=== PATIENT | male | born 1950 | race Caucasian/White ===

== ENCOUNTER 2017-12-06 15:30 | Emergency (ER) | payer MEDICARE, OTHER, MEDICAID ==
[~2017-12-06] VITALS: Ht 172.7 cm; Wt 59.0 kg
[~2017-12-06 15:30] MED LIST: AMITRIPTYLIN50 MG PO; B-12 COMPL1000 MCG/M; COREG12.5 MG PO; CYMBALTA30 MG PO; DULERA1 AE1 IN; EQ ASPIRIN325 MG PO; FLONASE AL50 MCG/ACT; FOLIC ACID1 M1; FOLIC PO; HYDROCODONE/ACE1 TAB PO; LEXAPRO20 MG PO; LIDOCAINE51; MEGACE40 MG PO; MELOXICAM15 MG PO; METHOCARBAM750 MG OR; MORPHINE SUL15 M1 OR; MORPHINE SUL15 M2 OR; PROAIR HFA IN; TRAMADOL HCL50 MG PO; TRAZODONE100 MG PO; VITAMIN B PO; XANAX XR0.5 MG PO
[2017-12-06 17:30] VITALS: BP 149/74
[2017-12-06] MEDS ORDERED: ULTRAM50 M1 PO (17:33)
== END 2017-12-06 17:30 | disposition home or self-care (01) ==
LOC: ED 15:30
DX: S20.211A Contusion of right front wall of thorax, initial encounter (principal); W01.190A Fall on same level from slipping, tripping and stumbling with subsequent striking against furniture, initial encounter; Y93.9 Activity, unspecified; Y92.009 Unspecified place in unspecified non-institutional (private) residence as the place of occurrence of the external cause

== ENCOUNTER 2018-01-11 12:16 | Emergency (ER) | payer MEDICARE, OTHER, MEDICAID ==
[~2018-01-11] VITALS: Ht 172.7 cm; Wt 64.0 kg
[~2018-01-11 12:16] MED LIST changes: +ULTRAM50 M1 PO
[2018-01-11 13:20] LABS: HEMATOCRIT 36.4 % (39.0-50.0); HEMOGLOBIN 11.8 g/dl (14.0-18.0); IMMATURE GRANULOCYTES 0.4 % (0.0-1.0); MEAN CORPUSCULAR HGB 29.5 pG CALC (26.0-32.0); MEAN CORPUSCULAR HGB CONC 32.4 g/L CALC (32.0-36.0); RED CELL DISTRI WIDTH 14.3 % (11.5-15.5)
[2018-01-11 13:28] LABS: INTERNATIONAL NORMALIZED RATIO 1.1 RATIO (0.7-1.3); PROTHROMBIN TIME 12.7 SECONDS (9.0-12.5)
[2018-01-11 13:32] LABS: ALBUMIN 3.5 g/dL (3.2-5.0); ALKALINE PHOSPHATASE 61 u/l (38-126); ANION GAP 13 (6-22 (CALC)); BILIRUBIN, TOTAL 0.5 mg/dL (0.0-1.4); BUN 22 mg/dL (8-23); BUN/CREATININE RATIO 23 (12-20 (CALC)); CARBON DIOXIDE 25 mmol/l (22-30); CHLORIDE 105 mmol/l (95-108); CREATININE 0.9 mg/dL (0.7-1.3); GFR > 60 ML/MIN (>=60 (CALC)); GFR FOR AFR.AMER. > 60 ML/MIN (>=60 (CALC)); POTASSIUM 4.8 mmol/l (3.5-5.1); SGOT/AST 25 u/l (19-48); SGPT/ALT 19 u/l (11-66); SODIUM 138 mmol/l (137-146); TOTAL PROTEIN 6.2 g/dL (6.3-8.2)
[2018-01-11 13:36] LABS: URINE BILIRUBIN - DIPSTICK NEGATIVE (NEGATIVE); URINE BLOOD DIPSTICK NEGATIVE (NEGATIVE); URINE COLOR YELLOW; URINE GLUCOSE - DIPSTICK NEGATIVE (NEGATIVE); URINE KETONE NEGATIVE (NEGATIVE); URINE LEUK ESTERASE NEGATIVE (NEGATIVE); URINE NITRITE - DIPSTICK NEGATIVE (Negative); URINE PH 6.5 (4.5-8.0); URINE PROTEIN - DIPSTICK NEGATIVE (NEG-TRACE); URINE UROBILINOGEN - DIPSTICK 0.2 E.U./dL (0.2)
[2018-01-11 13:39] LABS: URINE CLARITY CLEAR
[2018-01-11 13:39] LABS: ETHYL ALCOHOL 0 mg/dl (0-30); MYOGLOBIN 44 ng/mL (0 - 121)
[2018-01-11 13:41] LABS: BARBITURATES NEGATIVE (NEGATIVE); COCAINE NEGATIVE (NEGATIVE); METHADONE NEGATIVE (NEGATIVE); OXCYCODONE NEGATIVE (NEGATIVE); TETRAHYDROCANNABIONOL NEGATIVE (NEGATIVE); TRICYLIC ANTIDEPRESSANTS POSITIVE (NEGATIVE)
[2018-01-11] MEDS ORDERED: ADULT ASPIRIN R81 MG PO (16:27)
[2018-01-11] MEDS ORDERED: DEPO-TESTOS100 MG/ML IM (16:29)
[2018-01-11 16:40] VITALS: BP 126/59
== END 2018-01-11 16:50 | disposition home or self-care (01) ==
LOC: ED 12:16
PROVIDERS: Family Medicine
DX: R41.82 Altered mental status, unspecified (principal); F41.9 Anxiety disorder, unspecified; F32.9 Major depressive disorder, single episode, unspecified; I25.2 Old myocardial infarction; M19.90 Unspecified osteoarthritis, unspecified site; F17.210 Nicotine dependence, cigarettes, uncomplicated; R94.31 Abnormal electrocardiogram [ECG] [EKG]

== ENCOUNTER 2018-03-14 11:13 | Emergency (ER) | payer MEDICARE, OTHER, MEDICAID ==
[~2018-03-14] VITALS: Ht 172.7 cm; Wt 55.0 kg
[~2018-03-14 11:13] MED LIST changes: +ADULT ASPIRIN R81 MG PO; +DEPO-TESTOS100 MG/ML IM
[2018-03-14 11:40] LABS: HEMATOCRIT 36.1 % (39.0-50.0); HEMOGLOBIN 11.6 g/dl (14.0-18.0); IMMATURE GRANULOCYTES 0.3 % (0.0-1.0); MEAN CELL VOLUME 88.9 fL CALC (80.0-100.0); MEAN CORPUSCULAR HGB 28.6 pG CALC (26.0-32.0); MEAN CORPUSCULAR HGB CONC 32.1 g/L CALC (32.0-36.0); NEUT# 8.91 thou/uL (1.82-7.42); RED BLOOD COUNT 4.06 mill/uL (4.70-6.10); RED CELL DISTRI WIDTH 14.6 % (11.5-15.5)
[2018-03-14 11:53] VITALS: BP 105/57
[2018-03-14 12:03] LABS: ALBUMIN 3.8 g/dL (3.2-5.0); ALKALINE PHOSPHATASE 60 u/l (38-126); ANION GAP 17 (6-22 (CALC)); BILIRUBIN, TOTAL 0.7 mg/dL (0.0-1.4); BUN 29 mg/dL (8-23); BUN/CREATININE RATIO 30 (12-20 (CALC)); CARBON DIOXIDE 23 mmol/l (22-30); CHLORIDE 104 mmol/l (95-108); GFR > 60 ML/MIN (>=60 (CALC)); GFR FOR AFR.AMER. > 60 ML/MIN (>=60 (CALC)); POTASSIUM 3.8 mmol/l (3.5-5.1); SGOT/AST 32 u/l (19-48); SGPT/ALT 29 u/l (11-66); SODIUM 140 mmol/l (137-146); TOTAL PROTEIN 6.7 g/dL (6.3-8.2)
[2018-03-14 12:14] LABS: MYOGLOBIN 62 ng/mL (0 - 121)
== END 2018-03-14 11:54 | disposition short-term general hospital (02) ==
LOC: ED 11:13
PROVIDERS: Family Medicine
DX: I21.3 ST elevation (STEMI) myocardial infarction of unspecified site (principal); I25.2 Old myocardial infarction; F32.9 Major depressive disorder, single episode, unspecified; M19.90 Unspecified osteoarthritis, unspecified site; F41.9 Anxiety disorder, unspecified; F17.210 Nicotine dependence, cigarettes, uncomplicated; Z95.5 Presence of coronary angioplasty implant and graft

== ENCOUNTER 2018-05-19 01:21 | Emergency (ER) | payer MEDICARE, OTHER, MEDICAID ==
[~2018-05-19] VITALS: Ht 172.7 cm; Wt 56.2 kg
[2018-05-19] MEDS ORDERED: CARVEDILOL12.5 MG PO (01:35)
[2018-05-19] MEDS ORDERED: NORCO1 TA2 PO (01:36)
[2018-05-19] MEDS ORDERED: ALPRAZOLAM0.5 M2 PO (01:36)
[2018-05-19] MEDS ORDERED: ESCITALOPRAM OX20 MG PO (01:37)
[2018-05-19 02:27] LABS: URINE BILIRUBIN - DIPSTICK NEGATIVE (NEGATIVE); URINE BLOOD DIPSTICK SMALL (NEGATIVE); URINE COLOR YELLOW; URINE GLUCOSE - DIPSTICK NEGATIVE (NEGATIVE); URINE KETONE NEGATIVE (NEGATIVE); URINE LEUK ESTERASE NEGATIVE (NEGATIVE); URINE NITRITE - DIPSTICK NEGATIVE (Negative); URINE PH 5.5 (4.5-8.0); URINE PROTEIN - DIPSTICK NEGATIVE (NEG-TRACE); URINE SPECIFIC GRAVITY 1.015; URINE UROBILINOGEN - DIPSTICK 0.2 E.U./dL (0.2)
[2018-05-19 02:28] LABS: URINE CLARITY SL CLOUDY
[2018-05-19 02:38] LABS: URINE MUCUS MODERATE hpf (NONE-FEW); URINE SQUAMOUS EPITHELIAL CELL FEW EPI/hpf (0-FEW)
[2018-05-19] MEDS ORDERED: TAMSULOSIN0.4 MG PO (02:41)
[2018-05-19] MEDS ORDERED: BACTRIM DS1 TAB PO (02:41)
[2018-05-19 03:23] VITALS: BP 172/78
== END 2018-05-19 03:23 | disposition home or self-care (01) ==
LOC: ED 01:21
PROVIDERS: Family Medicine
PROC: 0T9B70Z Drainage of Bladder with Drainage Device, Via Natural or Artificial Opening (ICD-10-PCS; principal; 2018-05-19)
DX: N40.1 Benign prostatic hyperplasia with lower urinary tract symptoms (principal); R33.8 Other retention of urine

== ENCOUNTER 2018-05-26 16:50 | Emergency (ER) | payer MEDICARE, OTHER, MEDICAID ==
[~2018-05-26] VITALS: Ht 172.7 cm; Wt 57.0 kg
[2018-05-26 16:50] VITALS: BP 133/74
[~2018-05-26 16:50] MED LIST changes: +ALPRAZOLAM0.5 M2 PO; +BACTRIM DS1 TAB PO; +CARVEDILOL12.5 MG PO; +ESCITALOPRAM OX20 MG PO; +NORCO1 TA2 PO; +TAMSULOSIN0.4 MG PO
== END 2018-05-26 17:02 | disposition left against medical advice (07) ==
LOC: ED 16:50 → LWOBS 17:02
DX: Z91.19 Patient's noncompliance with other medical treatment and regimen (principal)

== ENCOUNTER 2018-05-26 19:43 | Emergency (ER) | payer MEDICARE, OTHER, MEDICAID ==
[~2018-05-26] VITALS: Ht 152.4 cm; Wt 55.4 kg
[2018-05-26 20:15] VITALS: BP 139/78
== END 2018-05-26 20:15 | disposition home or self-care (01) ==
LOC: ED 19:43
DX: Z46.6 Encounter for fitting and adjustment of urinary device (principal); I10 Essential (primary) hypertension; F32.9 Major depressive disorder, single episode, unspecified; F41.9 Anxiety disorder, unspecified; M19.90 Unspecified osteoarthritis, unspecified site; F17.210 Nicotine dependence, cigarettes, uncomplicated; I25.2 Old myocardial infarction

== ENCOUNTER 2018-05-28 17:08 | Emergency (ER) | payer MEDICARE, OTHER, MEDICAID ==
[~2018-05-28] VITALS: Ht 172.7 cm; Wt 54.5 kg
[2018-05-28 17:31] VITALS: BP 131/78
[2018-05-28] MEDS ORDERED: VISTARIL 50MG C50 M1 PO (17:32)
== END 2018-05-28 17:48 | disposition home or self-care (01) ==
LOC: ED 17:08
DX: F41.9 Anxiety disorder, unspecified (principal); R19.7 Diarrhea, unspecified; R11.0 Nausea; J44.9 Chronic obstructive pulmonary disease, unspecified; F17.210 Nicotine dependence, cigarettes, uncomplicated

== ENCOUNTER 2018-06-09 03:22 | Emergency (ER) | payer MEDICARE, OTHER, MEDICAID ==
[~2018-06-09] VITALS: Ht 172.7 cm; Wt 57.0 kg
[~2018-06-09 03:22] MED LIST changes: +VISTARIL 50MG C50 M1 PO
[2018-06-09] MEDS ORDERED: CIPROFLOXACN500 MG PO (03:39)
[2018-06-09 03:58] VITALS: BP 161/72
== END 2018-06-09 03:57 | disposition home or self-care (01) ==
LOC: ED 03:22
PROC: 0T9B70Z Drainage of Bladder with Drainage Device, Via Natural or Artificial Opening (ICD-10-PCS; principal; 2018-06-09)
DX: R33.9 Retention of urine, unspecified (principal); I10 Essential (primary) hypertension; F32.9 Major depressive disorder, single episode, unspecified; F41.9 Anxiety disorder, unspecified; M19.90 Unspecified osteoarthritis, unspecified site; I25.2 Old myocardial infarction; Z95.5 Presence of coronary angioplasty implant and graft; F17.210 Nicotine dependence, cigarettes, uncomplicated

== ENCOUNTER 2018-06-15 07:52 | Emergency (ER) | payer MEDICARE, OTHER, MEDICAID ==
[~2018-06-15] VITALS: Ht 172.7 cm; Wt 60.0 kg
[~2018-06-15 07:52] MED LIST changes: +CIPROFLOXACN500 MG PO
[2018-06-15 08:21] LABS: URINE BILIRUBIN - DIPSTICK NEGATIVE (NEGATIVE); URINE BLOOD DIPSTICK TRACE-INTACT (NEGATIVE); URINE CLARITY CLEAR; URINE COLOR YELLOW; URINE GLUCOSE - DIPSTICK NEGATIVE (NEGATIVE); URINE KETONE NEGATIVE (NEGATIVE); URINE LEUK ESTERASE NEGATIVE (NEGATIVE); URINE NITRITE - DIPSTICK NEGATIVE (Negative); URINE PROTEIN - DIPSTICK NEGATIVE (NEG-TRACE); URINE UROBILINOGEN - DIPSTICK 0.2 E.U./dL (0.2)
[2018-06-15 08:29] VITALS: BP 118/62
== END 2018-06-15 08:34 | disposition home or self-care (01) ==
LOC: ED 07:52
PROVIDERS: Family Medicine
PROC: 0T9B70Z Drainage of Bladder with Drainage Device, Via Natural or Artificial Opening (ICD-10-PCS; principal; 2018-06-15)
DX: N40.1 Benign prostatic hyperplasia with lower urinary tract symptoms (principal); R33.8 Other retention of urine

== ENCOUNTER 2018-06-27 22:15 | Emergency (ER) | payer MEDICARE, OTHER, MEDICAID ==
[~2018-06-27] VITALS: Ht 172.7 cm; Wt 58.4 kg
[2018-06-27 22:52] VITALS: BP 126/67
== END 2018-06-27 22:59 | disposition home or self-care (01) ==
LOC: ED 22:15
DX: Z46.6 Encounter for fitting and adjustment of urinary device (principal); I10 Essential (primary) hypertension; I25.2 Old myocardial infarction; F32.9 Major depressive disorder, single episode, unspecified; M19.90 Unspecified osteoarthritis, unspecified site; F41.9 Anxiety disorder, unspecified; F17.210 Nicotine dependence, cigarettes, uncomplicated

== ENCOUNTER 2018-09-13 10:12 | Emergency (ER) | payer MEDICARE, MEDICAID ==
[~2018-09-13] VITALS: Ht 172.7 cm; Wt 59.0 kg
[2018-09-13 11:00] LABS: ANION GAP 16 (6-22 (CALC)); BUN 10 mg/dL (8-23); BUN/CREATININE RATIO 13 (12-20 (CALC)); CARBON DIOXIDE 27 mmol/l (22-30); CHLORIDE 102 mmol/l (95-108); CREATININE 0.8 mg/dL (0.7-1.3); GFR > 60 ML/MIN (>=60 (CALC)); GFR FOR AFR.AMER. > 60 ML/MIN (>=60 (CALC)); SODIUM 140 mmol/l (137-146)
[2018-09-13 11:02] LABS: POTASSIUM 5.2 mmol/l (3.5-5.1)
[2018-09-13 11:04] LABS: HEMATOCRIT 46.7 % (39.0-50.0); HEMOGLOBIN 14.7 g/dl (14.0-18.0); IMMATURE GRANULOCYTES 0.2 % (0.0-5.0); MEAN CELL VOLUME 84.6 fL CALC (80.0-100.0); MEAN CORPUSCULAR HGB 26.6 pG CALC (26.0-32.0); MEAN CORPUSCULAR HGB CONC 31.5 g/L CALC (32.0-36.0); NEUT# 6.18 thou/uL (1.82-7.42); RED BLOOD COUNT 5.52 mill/uL (4.70-6.10); RED CELL DISTRI WIDTH 15.9 % (11.5-15.5)
[2018-09-13 11:22] VITALS: BP 176/81
== END 2018-09-13 11:23 | disposition left against medical advice (07) ==
LOC: ED 10:12
PROVIDERS: Family Medicine
DX: R55 Syncope and collapse (principal); R06.02 Shortness of breath; I10 Essential (primary) hypertension; F32.9 Major depressive disorder, single episode, unspecified; F41.9 Anxiety disorder, unspecified; M19.90 Unspecified osteoarthritis, unspecified site; F17.210 Nicotine dependence, cigarettes, uncomplicated; I25.2 Old myocardial infarction; Z91.19 Patient's noncompliance with other medical treatment and regimen; R94.31 Abnormal electrocardiogram [ECG] [EKG]

== ENCOUNTER 2019-03-17 16:28 | Emergency (ER) | payer MEDICARE, MEDICAID ==
[~2019-03-17] VITALS: Ht 172.7 cm; Wt 62.0 kg
[2019-03-17 17:02] LABS: HEMATOCRIT 45.9 % (39.0-50.0); HEMOGLOBIN 14.8 g/dl (14.0-18.0); IMMATURE GRANULOCYTES 0.2 % (0.0-5.0); MEAN CELL VOLUME 83.6 fL CALC (80.0-100.0); MEAN CORPUSCULAR HGB CONC 32.2 g/L CALC (32.0-36.0); NEUT# 6.27 thou/uL (1.82-7.42); RED BLOOD COUNT 5.49 mill/uL (4.70-6.10); RED CELL DISTRI WIDTH 15.3 % (11.5-15.5)
[2019-03-17 17:21] LABS: ALBUMIN 4.7 g/dL (3.2-5.0); ALKALINE PHOSPHATASE 69 u/l (38-126); BUN 13 mg/dL (8-23); BUN/CREATININE RATIO 16 (12-20 (CALC)); CARBON DIOXIDE 27 mmol/l (22-30); CHLORIDE 102 mmol/l (95-108); CPK 63 u/l (52-200); CREATININE 0.8 mg/dL (0.7-1.3); GFR > 60 ML/MIN (>=60 (CALC)); GFR FOR AFR.AMER. > 60 ML/MIN (>=60 (CALC)); SGOT/AST 22 u/l (19-48); SODIUM 141 mmol/l (137-146); TOTAL PROTEIN 7.7 g/dL (6.3-8.2)
[2019-03-17 17:22] LABS: ANION GAP 16 (6-22 (CALC)); BILIRUBIN, TOTAL 0.6 mg/dL (0.0-1.4); POTASSIUM 3.8 mmol/l (3.5-5.1)
[2019-03-17 17:33] LABS: MYOGLOBIN 77 ng/mL (0 - 121)
[2019-03-17 19:01] VITALS: BP 198/90
== END 2019-03-17 18:43 | disposition left against medical advice (07) ==
LOC: ED 16:28
PROVIDERS: Emergency Medicine
DX: R19.7 Diarrhea, unspecified (principal); I10 Essential (primary) hypertension; R53.1 Weakness; R42 Dizziness and giddiness; R11.2 Nausea with vomiting, unspecified; Z91.19 Patient's noncompliance with other medical treatment and regimen

== ENCOUNTER 2019-08-07 08:27 | Day surgery (SDC) | payer MEDICARE, MEDICAID ==
[~2019-08-07] VITALS: Ht 172.7 cm; Wt 62.6 kg
[~2019-08-07 08:27] MED LIST changes: +ALPRAZOLAM0.5 MG PO; +ASPIRIN81 MG PO; +BUPROPION HCL150 M1 PO; +COMBIVENT RESPIMAT IN; +CYANOCOBAL1000 MCG/M SC; +FAMOTIDINE20 M1 PO; +FAMOTIDINE20 M3 PO; +HYDROCODONE BIT1 TA7 PO; +OMEPRAZOLE PO; +ONDANSETRON4 MG PO; +SEROQUEL100 MG PO; +SERTRALINE PO; +TESTOSTERONE; +TRAZODONE50 MG PO
[2019-08-07 10:58] VITALS: BP 162/81
== END 2019-08-07 11:10 | disposition home or self-care (01) ==
LOC: ENDO 08:27 → ORM 10:05 → ENDO 11:10 → ORM 12:00
PROVIDERS: ATTEND Surgery
PROC: 0DB98ZX Excision of Duodenum, Via Natural or Artificial Opening Endoscopic, Diagnostic (ICD-10-PCS; principal; 2019-08-07)
PROC: 0DB78ZX Excision of Stomach, Pylorus, Via Natural or Artificial Opening Endoscopic, Diagnostic (ICD-10-PCS; 2019-08-07)
DX: K21.9 Gastro-esophageal reflux disease without esophagitis (principal); K29.80 Duodenitis without bleeding; K29.70 Gastritis, unspecified, without bleeding; K44.9 Diaphragmatic hernia without obstruction or gangrene; J44.9 Chronic obstructive pulmonary disease, unspecified; I10 Essential (primary) hypertension; I25.2 Old myocardial infarction

== ENCOUNTER 2020-09-13 16:52 | Emergency (ER) | payer MEDICARE, MEDICAID ==
[~2020-09-13] VITALS: Ht 172.7 cm; Wt 65.0 kg
[2020-09-13 17:22] LABS: IMMATURE GRANULOCYTES 0.3 % (0.0-5.0); MEAN CELL VOLUME 88.8 fL CALC (80.0-100.0); MEAN CORPUSCULAR HGB 28.9 pG CALC (26.0-32.0); MEAN CORPUSCULAR HGB CONC 32.6 g/dL CAL (32.0-36.0); NEUT# 6.47 thou/uL (1.82-7.42); RED BLOOD COUNT 4.01 mill/uL (4.70-6.10); RED CELL DISTRI WIDTH 14.2 % (11.5-15.5)
[2020-09-13 17:24] LABS: URINE BILIRUBIN - DIPSTICK NEGATIVE (NEGATIVE); URINE BLOOD DIPSTICK TRACE-INTACT (NEGATIVE); URINE COLOR YELLOW; URINE GLUCOSE - DIPSTICK NEGATIVE (NEGATIVE); URINE KETONE NEGATIVE (NEGATIVE); URINE LEUK ESTERASE NEGATIVE (NEGATIVE); URINE NITRITE - DIPSTICK NEGATIVE (Negative); URINE PH 5.5 (4.5-8.0); URINE PROTEIN - DIPSTICK NEGATIVE (NEG-TRACE); URINE SPECIFIC GRAVITY <=1.005; URINE UROBILINOGEN - DIPSTICK 0.2 E.U./dL (0.2)
[2020-09-13 17:26] LABS: HEMATOCRIT 35.6 % (39.0-50.0); HEMOGLOBIN 11.6 g/dl (14.0-18.0)
[2020-09-13 17:38] LABS: ALBUMIN 4.1 g/dL (3.2-5.0); ALKALINE PHOSPHATASE 86 u/l (38-126); BUN 9 mg/dL (8-23); BUN/CREATININE RATIO 11 (12-20 (CALC)); CHLORIDE 107 mmol/l (95-108); CREATININE 0.9 mg/dL (0.7-1.3); GFR > 60 ML/MIN (>=60 (CALC)); GFR FOR AFR.AMER. > 60 ML/MIN (>=60 (CALC)); LIPASE 34 u/l (23-300); POTASSIUM 4.4 mmol/l (3.5-5.1); SGOT/AST 34 u/l (19-48); SODIUM 138 mmol/l (137-146); TOTAL PROTEIN 7.1 g/dL (6.3-8.2)
[2020-09-13 17:39] LABS: ANION GAP 12 (6-22 (CALC)); BILIRUBIN, TOTAL 0.7 mg/dL (0.0-1.4); CARBON DIOXIDE 23 mmol/l (22-30)
[2020-09-13 18:04] VITALS: BP 157/72
== END 2020-09-13 18:00 | disposition home or self-care (01) ==
LOC: ED 16:52
PROVIDERS: Family Medicine
DX: R55 Syncope and collapse (principal); S00.81XA Abrasion of other part of head, initial encounter; I10 Essential (primary) hypertension; F32.9 Major depressive disorder, single episode, unspecified; F41.9 Anxiety disorder, unspecified; J44.9 Chronic obstructive pulmonary disease, unspecified; F17.200 Nicotine dependence, unspecified, uncomplicated; I25.2 Old myocardial infarction; W19.XXXA Unspecified fall, initial encounter; Y92.89 Other specified places as the place of occurrence of the external cause

== ENCOUNTER 2020-10-14 09:33 | Observation (INO) | payer MEDICARE, MEDICAID ==
[~2020-10-14] VITALS: Ht 172.7 cm; Wt 75.0 kg
--- NOTE | 2020-10-14 09:33 | NUR ---
PT TO ROOM 9 VIA EMS. BEDSIDE TRAIGE COMPLETED. PT STATES THAT HE WANTS TO . DR MOORE NOTIFIED. PT STATES THAT 1 MONTH AGO.
--- NOTE | 2020-10-14 09:40 | NUR ---
PATIENT UNABLE TO RECONCILE MEDICATIONS AT THIS TIME.
--- NOTE | 2020-10-14 09:45 | NUR ---
PT REPORTS SOB X 1 MONTH AND FALLING SEVERAL TIMES. STATES HIS 1 MONTH AGO AND NO LONGER WANTS TO LIVE. PT TEARFUL WHEN SPEAKING. CLOTHING REMOVED AND PLACED IN BELONGING BAG. COMMERCIAL SALES DIRECTOR IN PLACE. CALL LIGHT GIVEN. SITTER OUTSIDE OF ROOM.
[2020-10-14 09:51] LABS: HEMATOCRIT 40.5 % (39.0-50.0); HEMOGLOBIN 13.1 g/dl (14.0-18.0); IMMATURE GRANULOCYTES 0.4 % (0.0-5.0); MEAN CELL VOLUME 86.4 fL CALC (80.0-100.0); MEAN CORPUSCULAR HGB 27.9 pG CALC (26.0-32.0); MEAN CORPUSCULAR HGB CONC 32.3 g/dL CAL (32.0-36.0); NEUT# 8.8 thou/uL (1.82-7.42); RED BLOOD COUNT 4.69 mill/uL (4.70-6.10); RED CELL DISTRI WIDTH 13.9 % (11.5-15.5)
--- NOTE | 2020-10-14 10:05 | NUR ---
PT TO RADIOLGY VIA STRETCHER ACCOMPANIED BY SITTER.
--- NOTE | 2020-10-14 10:15 | NUR ---
PT RETURNS FROM CAT SCAN. PLACED BACK ON MONITOR, SITTER BEDSIDE.
--- NOTE | 2020-10-14 10:45 | NUR ---
PT REQUESTING PAIN MEDICATION, REPORTS "PAIN ALL OVER." DR MOORE NOTIFIED ORDER RECEIVED FOR MEDICATION
[2020-10-14 10:49] LABS: ALBUMIN 4.5 g/dL (3.2-5.0); ALKALINE PHOSPHATASE 123 u/l (38-126); ANION GAP 17 (6-22 (CALC)); BILIRUBIN, TOTAL 0.7 mg/dL (0.0-1.4); BUN 16 mg/dL (8-23); BUN/CREATININE RATIO 16 (12-20 (CALC)); CARBON DIOXIDE 23 mmol/l (22-30); CHLORIDE 104 mmol/l (95-108); GFR > 60 ML/MIN (>=60 (CALC)); GFR FOR AFR.AMER. > 60 ML/MIN (>=60 (CALC)); POTASSIUM 4.1 mmol/l (3.5-5.1); SGOT/AST 33 u/l (19-48); SODIUM 139 mmol/l (137-146); TOTAL PROTEIN 7.3 g/dL (6.3-8.2)
--- NOTE | 2020-10-14 11:05 | NUR ---
PT MEDICATED FOR PAIN PER EDP ORDER. TOLERATED ADMINISTRATION WELL. PT REQUESTING BLANKETS. REPOSITIONED IN BED FOR COMFORT. SITTER BEDSIDE FOR CLOSE OBSERVATION.
--- NOTE | 2020-10-14 11:40 | NUR ---
IN ROOM WITH DR MOORE SPEAKING WITH PT REGARDING COTO ACT STATUS AND PLAN OF CARE. PT STATES "GIVE ME THE PAPER TO SIGN OUT, I WANT TO LEAVE." DR MOORE ADVISED PT AGAIN OF COTO ACT STATUS AND ORDER IN WHICH PT VOICED HIS THOUGHTS OF "WANTING TO ." AND "NO LONGER LIVE." PT CONTINUES TO ARGUE WITH STAFF MEMBERS IN REGARDS TO LEAVING AND NOT WANTING TO BE IN HOSPITAL. THIS NURSE AND DR MOORE REITERATED THE IMPORTANCE TO BE EVALUATED FURTHER. PT RELOCATED TO ROOM # 10 FOR CLOSER STAFF OBSERVATION. PT STATES "GIVE ME SOME MORPHINE, A LOT OF IT, IM HURTING ALL OVER." DR MOORE PLACED ORDER FOR MEDICATION.
--- NOTE | 2020-10-14 11:50 | NUR ---
PT MEDICATED WITH MORPHINE PER ORDER. DISCUSSED WITH PT IMPORTANCE TO REMAIN IN BED. AIRCRAFT WORKER IN PLACE. CALL LIGHT GIVEN. PT REMAINS IN CLOSE OBSERVATION OF STAFF AND SITTER BEDSIDE.
[2020-10-14] MEDS ORDERED: ZOFRAN4 MG/TAB PO (11:56)
[2020-10-14] MEDS ORDERED: IPRATROPIU0.5 MG/3 M IN (12:27)
[2020-10-14] MEDS ORDERED: CYANOCOBAL1000 MCG/M IM (12:28)
[2020-10-14] MEDS ORDERED: OMEPRAZOLE DR40 MG PO (12:29)
[2020-10-14] MEDS ORDERED: BUPROPION HCL150 M1 PO (12:30)
[2020-10-14] MEDS ORDERED: DULERA1 AE1 IN (12:31)
[2020-10-14] MEDS ORDERED: SEROQUEL100 MG PO (12:32)
[2020-10-14] MEDS ORDERED: ZOLOFT50 MG PO (12:32)
[2020-10-14] MEDS ORDERED: COMBIVENT RESPIMAT IN (12:33)
[2020-10-14] MEDS ORDERED: CARVEDILOL6.25 MG PO (12:34)
[2020-10-14] MEDS ORDERED: TIZANIDINE HYDRO2 M1 PO (12:35)
[2020-10-14] MEDS ORDERED: LORTAB 1010 MG PO (12:35)
[2020-10-14] MEDS ORDERED: MIRTAZAPINE15 MG PO (12:36)
[2020-10-14] MEDS ORDERED: ALPRAZOLAM1 MG PO (12:36)
--- NOTE | 2020-10-14 12:50 | NUR ---
PT SLEEPING AT THIS TIME. RESP EVEN AND UNLABORED. LEGAL DEPARTMENT MANAGER IN PLACE. SITTER PRESENT FOR 1:[address] MOORE SPEAKING WITH DR CRAVEN REGARDING ADMISSION.
--- NOTE | 2020-10-14 13:00 | NUR ---
PT REPORTS "FEELING ANXIOUS, I NEED MY XNAX." DR MOORE NOTIFIED AND ORDER RECEIVED FOR ATIVAN PO.
--- NOTE | 2020-10-14 13:15 | NUR ---
IN ROOM TO MEDICATE PT WITH MEDICATION PER MD ORDER. PT STATES " THAT MORPHINE DIDN'T DO ANYTHING FOR ME, CAN DR MOORE MAKE SURE I HAVE SOME WHEN I GO UPSTAIRS." ADVISED PT THAT WOULD BE UP TO THE ADMITTING PROVIDER AND TO SPEAK WITH THEM REGARDING HIS REQUEST. PT MENTIONS THAT HE HAS A WALKER, CANE AND WHEELCHAIR AT HOME AND DOESN'T UTILITZE THEM. INSTRUCTED PT ON THE IMPORATNCE TO USE DEVICES FOR ASSISTED AMBULATTION AND TO PREVENT FALLS. PT VERABLIZED UNDERSTANDING.
--- NOTE | 2020-10-14 13:30 | NUR ---
Admission Note Report Given to: JENNIFER COLLINS Transported by: Wheelchair X Stretcher Transported with: X Nurse Transporter X Patent IV O2 X Dictating Transcribing Machine Servicer Location: X ICU MS2 PT TRANSPORTED TO ICU RM # 3 WITH REPORT GIVEN TO KARINA.
--- NOTE | 2020-10-14 13:30 | NUR ---
REPORT GIVEN TO KARINA RODRIGUEZ
--- NOTE | 2020-10-14 14:00 | NUR ---
PT ARRIVES FROM ER VIA STRETCHER ACCOMPANIED BY JUNIOR. PT IS AMBULATORY TO BED, BUT UNSTEADY. LUNGS CLEAR, RA. NO DISTRESS NOTED. PT COMPLAINS OF PAIN ALL OVER FROM FALLS AT HOME. BLOOD PRESSURE ELEVATED, MEDS REQUESTED FOR SAME. SITTER AT BEDSIDE.
--- NOTE | 2020-10-14 15:24 | NUR ---
PT REVIEWED PATIENT'S CHART AND PATIENT WILL BENEFIT FROM PHYSICAL THERAPY. ORDER FOR PT EVAL AND TREAT.
--- NOTE | 2020-10-14 16:15 | NUR ---
PT PROVIDED KATALINA DAVION FOR NAUSEA. XANAX PROVIDED REQUESTED. MEDS REVIEWED WITH PT SO THAT HE CAN KNOW WHEN NEXT DOSES ARE AVAILABLE.
--- NOTE | 2020-10-14 17:02 | NUR ---
CAROLINA'S FRIEND EMANUEL WAS CONTACTED TO HELP FEED THE CAT, AGREED. EMANUEL IS AT [phone].
[2020-10-14 19:00] VITALS: BP 172/76
--- NOTE | 2020-10-14 19:01 | NUR ---
REPORT FROM KARINA RODRIGUEZ. ASSUME PT CARE AT THIS TIME.
[2020-10-14 20:00] VITALS: BP 157/77
--- NOTE | 2020-10-14 20:16 | NUR ---
PT NOTED SITTING UP IN BED. NO APPARENT DISTRESS NOTED. PT ALERT AND ORIENTED X3. IV SITE APPEARS HEALTHY. PT C/O GENERALIZED PAIN, REFUSED APAP AND REPOSITIONING. DISCUSSED WITH PT NEXT AVAILABLE DUE TIME FOR LORTAB, PT VERBALIZED UNDERSTANDING. ALSO DISCUSSED POC AND SAFETY PRECAUTIONS. MONITORS IN PLACE. SKIN INTACT. NO CURRENT WANTS OR NEEDS. CALL LIGHT WITHIN REACH. SITTER AT BEDSIDE. WILL CONTINUE TO MONITOR.
--- NOTE | 2020-10-14 21:18 | NUR ---
PT MEDICATED ORDERED. PT C/O GENERALIZED PAIN 8-10. ADMINISTERED PRN LORTAB AT THIS TIME. NO OTHER CURRENT WANTS OR NEEDS. VSS. CALL LIGHT WITHIN REACH. WILL CONTINUE TO MONITOR.
[2020-10-14 22:00] VITALS: BP 153/73
--- NOTE | 2020-10-14 23:45 | NUR ---
PT RESTING IN BED WITH EYES CLOSED. NO APPARENT DISTRESS NOTED. RESPIRATIONS EVEN AND UNLABORED. SITTER AT BEDSIDE. CALL LIGHT WITHIN REACH. WILL CONTINUE TO MONITOR.
[2020-10-15] VITALS (13 sets, daily range): BP systolic 85–144; BP diastolic 56–77
--- NOTE | 2020-10-15 01:14 | NUR ---
PT RESTING IN BED WITH EYES CLOSED. NO APPARENT DISTRESS NOTED. VSS. SITTER REMAINS AT BEDSIDE. CALL LIGHT WITHIN REACH. WILL CONTINUE TO MONITOR.
--- NOTE | 2020-10-15 03:20 | NUR ---
PT MEDICATED FOR PAIN AND ANXIETY UPON REQUEST. ENCOURAGED PT TO REPOSITION FOR COMFORT. PT REFUSED. NO OTHER CURRENT WANTS OR NEEDS NOTED. CALL LIGHT WITHIN REACH. WILL CONTINUE TO MONITOR.
--- NOTE | 2020-10-15 05:46 | NUR ---
PT SITTING UP IN BED WATCHING TV. NO APPARENT DISTRESS NOTED. RESPIRATIONS EVEN AND UNLABORED. PT ASKING WHAT TIME BREAKFAST IS, INFORMED PT OF BREAKFAST TIME. NO CURRENT WANTS ON NEEDS NOTED. CALL LIGHT WITHIN REACH. WILL CONTINUE TO MONITOR.
[2020-10-15 06:08] LABS: HEMATOCRIT 38.3 % (39.0-50.0); HEMOGLOBIN 12.2 g/dl (14.0-18.0); MEAN CELL VOLUME 86.5 fL CALC (80.0-100.0); MEAN CORPUSCULAR HGB 27.5 pG CALC (26.0-32.0); MEAN CORPUSCULAR HGB CONC 31.9 g/dL CAL (32.0-36.0); RED BLOOD COUNT 4.43 mill/uL (4.70-6.10); RED CELL DISTRI WIDTH 13.9 % (11.5-15.5)
[2020-10-15 06:26] LABS: ANION GAP 11 (6-22 (CALC)); BUN 14 mg/dL (8-23); BUN/CREATININE RATIO 18 (12-20 (CALC)); CALCULATED LDLCHOLESTEROL 82 mg/dL (62-129 (CALC)); CARBON DIOXIDE 27 mmol/l (22-30); CHLORIDE 103 mmol/l (95-108); CHOLESTEROL HDL RATIO 3.7 (<4.4 (CALC)); CREATININE 0.8 mg/dL (0.7-1.3); GFR > 60 ML/MIN (>=60 (CALC)); GFR FOR AFR.AMER. > 60 ML/MIN (>=60 (CALC)); HDL CHOLESTEROL 43 mg/dL (>=40); MAGNESIUM 2.2 mg/dL (1.6-2.3); POTASSIUM 3.7 mmol/l (3.5-5.1); SODIUM 137 mmol/l (137-146); TOTAL CHOLESTEROL 160 mg/dl (0-199); TOTAL TRIGLYCERIDES 174 mg/dl (30-149); VLDL CHOLESTROL 35 mg/dl (0-38 (CALC))
--- NOTE | 2020-10-15 10:31 | NUR ---
PT SEEN BY DR CRAVEN THIS MORNING, CLEARED FOR DISPOSITION TO PSYCHIATRIC FACILITY. DIRECTOR AUTO MIL FRANCOIS. SITTER REMAINS AT BEDSIDE. PT IS NEGATIVE ASSESSMENT PER CLEAR LUNGS, ABDOMEN BENIGN, AMBULATORY ABLE.
--- NOTE | 2020-10-15 12:00 | NUR ---
SISTER KWAN LEAVES PHONE TO CONTACT HER IF NEEDED, .
--- NOTE | 2020-10-15 13:17 | NUR ---
PT DISCHARGED FROM [facility] TO [facility] AT THIS TIME. DISCHARGE PAPERS FROM [facility] WERE REVIEWED, PT VERBALIZES UNDERSTANDING OF SAME, SIGNS PAPERS. PT LEAVES BY WHEELCHAIR ACC[facility]IED BY [facility] FROM [facility]. NO THREATS TO SELF WERE HEARD TODAY, PT REPEATS THAT HE WAS STUPID TO HAVE SAID THE THINGS THAT HE DID. PT STABLE CONDITION.
== END 2020-10-15 13:00 ==
LOC: ED 09:33 → ED-I 12:30 → ED 12:56 → ICU 12:57
PROVIDERS: Family Medicine; Nurse Practitioner; ADMIT Internal Medicine; ATTEND Internal Medicine
DX: R45.851 Suicidal ideations (principal); R53.1 Weakness; R06.00 Dyspnea, unspecified; I10 Essential (primary) hypertension; J44.9 Chronic obstructive pulmonary disease, unspecified; I25.10 Atherosclerotic heart disease of native coronary artery without angina pectoris; F32.9 Major depressive disorder, single episode, unspecified; F41.9 Anxiety disorder, unspecified; F17.200 Nicotine dependence, unspecified, uncomplicated; F11.20 Opioid dependence, uncomplicated; G89.29 Other chronic pain; I25.2 Old myocardial infarction; Z91.81 History of falling; Z63.4 Disappearance and death of family member; Z20.828 Contact with and (suspected) exposure to other viral communicable diseases
CPT/HCPCS: J1650

== ENCOUNTER 2021-01-11 10:05 | Emergency (ER) | payer MEDICARE, MEDICAID ==
[~2021-01-11] VITALS: Ht 172.7 cm; Wt 65.0 kg
[~2021-01-11 10:05] MED LIST changes: +ALPRAZOLAM ER1 MG PO; +ALPRAZOLAM1 MG PO; +CARVEDILOL6.25 MG PO; +CYANOCOBAL1000 MCG/M IM; +IPRATROPIU0.5 MG/3 M IN; +LORTAB 1010 MG PO; +LORTAB 7.57.5 MG PO; +MIRTAZAPINE15 MG PO; +OMEPRAZOLE DR40 MG PO; +REMERON7.5 MG PO; +TIZANIDINE HYDRO2 M1 PO; +TIZANIDINE2 MG PO; +ZOFRAN4 MG/TAB PO; +ZOLOFT50 MG PO
[2021-01-11 12:19] LABS: HEMATOCRIT 38.5 % (39.0-50.0); HEMOGLOBIN 12.1 g/dl (14.0-18.0); IMMATURE GRANULOCYTES 0.3 % (0.0-5.0); MEAN CORPUSCULAR HGB 26.1 pG CALC (26.0-32.0); MEAN CORPUSCULAR HGB CONC 31.4 g/dL CAL (32.0-36.0); NEUT# 5.59 thou/uL (1.82-7.42); RED BLOOD COUNT 4.64 mill/uL (4.70-6.10); RED CELL DISTRI WIDTH 16.2 % (11.5-15.5)
[2021-01-11 12:31] LABS: ALBUMIN 4.9 g/dL (3.2-5.0); ALKALINE PHOSPHATASE 110 u/l (38-126); ANION GAP 13 (6-22 (CALC)); BILIRUBIN, TOTAL 0.6 mg/dL (0.0-1.4); BUN 9 mg/dL (8-23); BUN/CREATININE RATIO 11 (12-20 (CALC)); CARBON DIOXIDE 29 mmol/l (22-30); CHLORIDE 100 mmol/l (95-108); CREATININE 0.9 mg/dL (0.7-1.3); GFR > 60 ML/MIN (>=60 (CALC)); GFR FOR AFR.AMER. > 60 ML/MIN (>=60 (CALC)); POTASSIUM 4.1 mmol/l (3.5-5.1); SGOT/AST 26 u/l (19-48); SODIUM 138 mmol/l (137-146); TOTAL PROTEIN 8.1 g/dL (6.3-8.2)
[2021-01-11 13:19] LABS: URINE BILIRUBIN - DIPSTICK NEGATIVE (NEGATIVE); URINE BLOOD DIPSTICK NEGATIVE (NEGATIVE); URINE COLOR YELLOW; URINE GLUCOSE - DIPSTICK NEGATIVE (NEGATIVE); URINE KETONE NEGATIVE (NEGATIVE); URINE LEUK ESTERASE NEGATIVE (NEGATIVE); URINE NITRITE - DIPSTICK NEGATIVE (Negative); URINE PROTEIN - DIPSTICK NEGATIVE (NEG-TRACE); URINE UROBILINOGEN - DIPSTICK 0.2 E.U./dL (0.2)
[2021-01-11 14:15] VITALS: BP 151/75
[2021-01-11] MEDS ORDERED: COMBIVENT RESPIMAT IN (14:18)
--- NOTE | 2021-01-11 15:25 | NUR ---
Late entry for 01/11/21 1400 Spoke to Mr. Penn about going to assisted living facility. He insisted he wanted to go home today. He did indicate that he would like to go to an [facility] but wanted to only go to the one in [place]. Phone number to Jennifer Sr provided to him prior to leaving. Mr. Penn gave me verbal permision to speak to his sister Martine Blackburn. Spoke with Isidro Blackburn and also provided her with the information for Jennifer Sr. [facility] [place] and see if they had anything available to help Mr. Penn
[2021-01-13] MEDS ORDERED: HYDROCODONE/ACE1 TAB PO (10:42)
== END 2021-01-11 14:15 | disposition left against medical advice (07) ==
LOC: ED 10:05 → ED-I 13:20 → ED 14:15
PROVIDERS: Family Medicine
DX: R55 Syncope and collapse (principal); I10 Essential (primary) hypertension; J44.9 Chronic obstructive pulmonary disease, unspecified; F32.9 Major depressive disorder, single episode, unspecified; F41.9 Anxiety disorder, unspecified; I25.2 Old myocardial infarction; F17.200 Nicotine dependence, unspecified, uncomplicated; Z99.81 Dependence on supplemental oxygen; Z91.81 History of falling; Z91.19 Patient's noncompliance with other medical treatment and regimen; Z20.822 Contact with and (suspected) exposure to COVID-19

== ENCOUNTER 2021-02-19 13:23 | Emergency (ER) | payer MEDICARE, MEDICAID ==
[2021-02-19] MEDS ORDERED: COMBIVENT RESPIMAT IN (14:01)
[2021-02-19] MEDS ORDERED: HYDROCO/APAP1 T10 PO (14:01)
[2021-02-19] MEDS ORDERED: PROVENTIL0.083 % IN (14:01)
[2021-02-19 14:29] VITALS: BP 190/87
[2021-02-22] MEDS ORDERED: HYDROCODONE/ACE1 TAB PO (12:05)
== END 2021-02-19 14:30 | disposition left against medical advice (07) ==
LOC: ED 13:23
DX: R06.02 Shortness of breath (principal); M19.90 Unspecified osteoarthritis, unspecified site; I10 Essential (primary) hypertension; J44.9 Chronic obstructive pulmonary disease, unspecified; F32.9 Major depressive disorder, single episode, unspecified; F41.9 Anxiety disorder, unspecified; I25.2 Old myocardial infarction; F17.200 Nicotine dependence, unspecified, uncomplicated; Z91.19 Patient's noncompliance with other medical treatment and regimen